=== PATIENT | male | born 1940 | race Caucasian/White ===

== ENCOUNTER → 2022-05-30 | Outpatient (CLI) | payer MEDICARE ==
[~2022-05-30] MED LIST: CATHETER FLUSH 10 ML SYR IV PRN; HOLD METFORMIN - RECEIVED CONTRAST 20 ML VIAL IV SCH; IOHEXOL 350 MG/ML 100 ML (OMNIPAQUE 350) VIAL IV ONE; NS 100 ML (IVPB) BAG IV ONE
[2022-05-30 09:38] LABS: BILIRUBIN,TOTAL 0.6 MG/DL (0.1-1.0); CALCIUM 9.1 MG/DL (8.5-10.1); CREATININE SERUM 1.37 MG/DL (0.60-1.30); POTASSIUM 4.2 MMOL/L (3.6-5.0)
[2022-05-30 09:39] LABS: ALBUMIN 3.9 GM/DL (3.2-4.5); TOTAL PROTEIN 7.1 GM/DL (6.4-8.2)
--- NOTE | 2022-05-30 11:10 | Diagnostic Imaging Report ---
PROCEDURE: CT abdomen and pelvis with contrast. TECHNIQUE: Multiple contiguous axial images were obtained through the abdomen and pelvis after administration of intravenous contrast. Auto Exposure Controls were utilized during the CT exam to meet ALARA standards for radiation dose reduction. All CT scans use one or more of the following dose optimizing techniques: automated exposure control, MA and/or KvP adjustment based on patient size and exam type or iterative reconstruction. INDICATION: Abnormal abdominal ultrasound. The patient's abnormal ultrasound and ultrasound report are not available for comparison. Imaging through the lung bases does show zones of linear atelectasis or scarring, bilateral lower lobes as well as the right middle lobe and lingula. There are small bilateral pleural effusions. No discrete liver mass is detected. There is high density material within the gallbladder which may represent sludge. No definite biliary ductal dilatation is seen. The pancreas and spleen are unremarkable. No adrenal mass is identified. No definite renal calculi or hydronephrosis is seen. Aorta is calcified but nonaneurysmal. There appears to be some perihepatic free fluid. There is a small amount of free fluid in the paracolic gutters bilaterally as well as a small amount of free fluid in the pelvis. The bladder is decompressed. The prostate appears to be surgically absent. There are some inflammatory changes in the central abdomen. Inflammation is adjacent to the third portion of the duodenum. No free air is identified. No well-formed fluid collection is identified. IMPRESSION: 1. Small bilateral pleural effusions with bibasilar atelectasis. 2. Moderate high density material within the gallbladder suggestive of sludge. 3. Free fluid within the abdomen and pelvis. There are some inflammatory changes in the upper central abdomen in the region of the duodenum in both the 2nd and 3rd portions. Duodenitis or peptic ulcer disease could produce a similar appearance. There is no evidence of free air or hollow viscus perforation. No well-formed fluid collection or abscess formation is seen. There is no bowel obstruction. Dictated by: Dictated on workstation # [id number]
== END ==
LOC: RAD FS 09:00
PROVIDERS: ATTEND Family Medicine
DX: Z01.812 Encounter for preprocedural laboratory examination (principal); K81.9 Cholecystitis, unspecified; J90 Pleural effusion, not elsewhere classified; J98.11 Atelectasis
CPT/HCPCS: 36415; 74177; 80053; Q9967

== ENCOUNTER 2022-06-28 11:11 | Emergency (ER) | payer MEDICARE ==
[~2022-06-28] VITALS: Ht 177.8 cm; Wt 103.8 kg
--- NOTE | 2022-06-28 11:22 | ED GI ---
General Chief Complaint: Abdominal/GI Problems Stated Complaint: NAUSEA/NEW MEDS Source of Information: Patient Exam Limitations: No Limitations History of Present Illness Date Seen by Provider: Jun 28, 2022 Time Seen by Provider: 11:11 Initial Comments 82yoM with past medical history of hypertension coming in due to nausea. He had been having upper abdominal pain for some time when his physician eventually ordered an US and then a CT. He had his gallbladder out roughly 3 week ago at [facility] after these studies. 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 He has follow up in [address] chest and MRI abdomen for further diagnostic information before they decide his treatment plan. He also has had difficulty with his blood pressure. They increase his metoprolol from 25 mg to 50 mg. They also added lisinopril and hydrochlorothiazide. He took all 3 blood pressure medicines this morning and felt slightly nauseous. That is why he presented to the ER. Nausea is mild, intermittent, nothing really seems to make it better or worse. Had one episode of NB/NB vomiting and otherwise has just been dry heaving. He has zofran at home but did not take it. He denies any fever, abdominal pain, chest pain, shortness of breath, weakness, numbness, or any other concerns. Allergies and Home Medications Allergies Coded Allergies: No Known Drug Allergies (Unverified , 06/28/22) Patient Home Medication List Home Medication List Reviewed: Yes Review of Systems Review of Systems Constitutional: No fever EENTM: No Symptoms Reported Respiratory: No Symptoms Reported Cardiovascular: No Symptoms Reported Gastrointestinal: Nausea Genitourinary: No Symptoms Reported Musculoskeletal: no symptoms reported Skin: no symptoms reported Psychiatric/Neurological: No Symptoms Reported Endocrine: No Symptoms Reported Hematologic/Lymphatic: No Symptoms Reported All Other Systems Reviewed Negative Unless Noted: Yes Past Meglkti-Stiqur-Hnixat Hx Patient Social History Substance use?: No Past Medical History Surgeries: Yes Gallbladder Physical Exam Vital Signs Vital Signs - First Documented 06/28/22 11:14 Temp 35.3 Pulse 54 Resp 22 B/P (MAP) 198/96 (130) Pulse Ox 99 O2 Delivery Room Air Capillary Refill : Height/Weight/BMI Height: '" Weight: lbs. oz. kg; BMI Method: General Appearance: WD/WN, no apparent distress HEENT: PERRL/EOMI, normal ENT inspection, pharynx normal Neck: non-tender, full range of motion, supple, normal inspection Respiratory: chest non-tender, lungs clear, normal breath sounds, no respiratory distress, no accessory muscle use Cardiovascular: regular rate, rhythm, no edema, no murmur Gastrointestinal: normal bowel sounds, non tender, soft; No distended, No guarding, No rebound Extremities: normal range of motion, non-tender, normal inspection, no pedal edema, no calf tenderness, normal capillary refill Back: normal inspection, no CVA tenderness Neurologic/Psychiatric: no motor/sensory deficits, alert, normal mood/affect Skin: normal color, warm/dry Lymphatic: no adenopathy Progress/Results/Core Measures Results/Orders Lab Results Laboratory Tests Test 06/28/22 11:40 Range/Units White Blood Count 8.3 4.3-11.0 10^3/uL Red Blood Count 4.23 L 4.30-5.52 10^6/uL Hemoglobin 13.1 L 13.3-17.7 g/dL Hematocrit 38 L 40-54 % Mean Corpuscular Volume 89 80-99 fL Mean Corpuscular Hemoglobin 31 25-34 pg Mean Corpuscular Hemoglobin Concent 35 32-36 g/dL Red Cell Distribution Width 13.1 10.0-14.5 % Platelet Count 290 130-400 10^3/uL Mean Platelet Volume 9.6 9.0-12.2 fL Immature Granulocyte % (Auto) 0 % Neutrophils (%) (Auto) 71 42-75 % Lymphocytes (%) (Auto) 18 12-44 % Monocytes (%) (Auto) 9 0-12 % Eosinophils (%) (Auto) 2 0-10 % Basophils (%) (Auto) 0 0-10 % Neutrophils # (Auto) 5.9 1.8-7.8 10^3/uL Lymphocytes # (Auto) 1.5 1.0-4.0 10^3/uL Monocytes # (Auto) 0.7 0.0-1.0 10^3/uL Eosinophils # (Auto) 0.2 0.0-0.3 10^3/uL Basophils # (Auto) 0.0 0.0-0.1 10^3/uL Immature Granulocyte # (Auto) 0.0 0.0-0.1 10^3/uL Sodium Level 131 L 135-145 MMOL/L Potassium Level 4.3 3.6-5.0 MMOL/L Chloride Level 96 L 98-107 MMOL/L Carbon Dioxide Level 22 21-32 MMOL/L Anion Gap 13 5-14 MMOL/L Blood Urea Nitrogen 17 7-18 MG/DL Creatinine 1.36 H 0.60-1.30 MG/DL Estimat Glomerular Filtration Rate 52 BUN/Creatinine Ratio 13 Glucose Level 143 H 70-105 MG/DL Calcium Level 9.0 8.5-10.1 MG/DL Corrected Calcium 9.2 8.5-10.1 MG/DL Magnesium Level 1.9 1.6-2.4 MG/DL Total Bilirubin 0.6 0.1-1.0 MG/DL Aspartate Amino Transf (AST/SGOT) 85 H 5-34 U/L Alanine Aminotransferase (ALT/SGPT) 107 H 0-55 U/L Alkaline Phosphatase 286 H 40-136 U/L Total Protein 6.9 6.4-8.2 GM/DL Albumin 3.8 3.2-4.5 GM/DL Lipase 67 8-78 U/L My Orders Orders - SVITLANA BOLTON MD Ondansetron Injection (Zofran Injectio (06/28/22 11:45) Ed Iv/Invasive Line Start (06/28/22 11:35) Cbc With Automated Diff (06/28/22 11:35) Comprehensive Metabolic Panel (06/28/22 11:35) Lipase (06/28/22 11:35) Magnesium (06/28/22 11:35) Protime With Inr (06/28/22 11:35) Medications Given in ED Current Medications Medications Dose Ordered Sig/Davin Route Start Time Stop Time Status Last Admin Dose Admin Ondansetron HCl 4 mg ONCE ONCE IVP 06/28/22 11:45 06/28/22 11:46 DC 06/28/22 12:03 4 MG Vital Signs/I&O 06/28/22 11:14 Temp 35.3 Pulse 54 Resp 22 B/P (MAP) 198/96 (130) Pulse Ox 99 O2 Delivery Room Air Progress Progress Note : Progress Note 82-year-old male with above history coming in due to nausea and dry heaving. ABCs were intact and vitals were stable on presentation. He is hypertensive here, but he says he is actually lower than he was yesterday with his systolic yesterday around 240. After resting and when he was not dry heaving I personally took his blood pressure and it was in the 150s. He was given IV Zofran for his nausea which helped a lot. Basic labs with normal white blood cell count, slightly low sodium, creatinine around 1.3 with unclear baseline, slightly elevated AST, ALT, alk phos which fits his pathology. He has an MRCP and CT chest in a couple days with follow-up. He has a soft and nontender abdomen. He is passing flatus and had a bowel movement yesterday. Clinically does not seem obstructed. I think it is appropriate for him to follow-up in a couple days with his primary, and this is likely related to his GI cancer versus viral illness versus some other etiology. I believe he is stable for discharge with outpatient follow-up. He was sent home with strict return precautions Departure Impression Primary Impression: Vomiting in adult Disposition: 01 HOME, SELF-CARE Condition: Stable Departure-Patient Inst. Decision time for Depature: 12:31 Referrals: CATE FUNEZ MD (PCP/Family) Primary Care Physician Patient Instructions: Nausea and Vomiting, Adult ED Add. Discharge Instructions: I think this is likely related to your GI cancer versus some food you ate versus an illness that was passed to you versus I think less likely related to your blood pressure medicines. Try to push fluids and do not focus on eating solid foods for the next day until you are feeling better. Try to take your blood pressure medicine like you are supposed to tomorrow, if you start feeling bad shortly after taking that again, then it is possible that your medicine. Follow-up with your regular doctor and be sure to get the scans done on Friday. I recommend taking the Zofran for your nausea at home. SVITLANA BOLTON MD Jun 28, 2022 11:22
[2022-06-28] MEDS ORDERED: ONDANSETRON 4 MG/2 ML (SDV) Z0FRAN IVP ONE (11:45)
[2022-06-28 11:52] LABS: BASOPHILS % (AUTO) 0 % (0-10); EOSINOPHILS # (AUTO) 0.2 10^3/uL (0.0-0.3); EOSINOPHILS % (AUTO) 2 % (0-10); HEMATOCRIT 38 % (40-54); HEMOGLOBIN 13.1 g/dL (13.3-17.7); LYMPHOCYTES # (AUTO) 1.5 10^3/uL (1.0-4.0); LYMPHOCYTES % (AUTO) 18 % (12-44); MEAN CORPUSCULAR HEMOGLOBIN 31 pg (25-34); MEAN CORPUSCULAR HGB CONC 35 g/dL (32-36); MEAN CORPUSCULAR VOLUME 89 fL (80-99); MEAN PLATELET VOLUME 9.6 fL (9.0-12.2); MONOCYTES # (AUTO) 0.7 10^3/uL (0.0-1.0); MONOCYTES % (AUTO) 9 % (0-12); NEUTROPHILS # (AUTO) 5.9 10^3/uL (1.8-7.8); NEUTROPHILS % (AUTO) 71 % (42-75); PLATELET COUNT 290 10^3/uL (130-400); WHITE BLOOD COUNT 8.3 10^3/uL (4.3-11.0)
[2022-06-28 12:18] LABS: BILIRUBIN,TOTAL 0.6 MG/DL (0.1-1.0); CREATININE SERUM 1.36 MG/DL (0.60-1.30); MAGNESIUM 1.9 MG/DL (1.6-2.4); POTASSIUM 4.3 MMOL/L (3.6-5.0)
[2022-06-28 12:19] LABS: ALBUMIN 3.8 GM/DL (3.2-4.5); TOTAL PROTEIN 6.9 GM/DL (6.4-8.2)
[2022-06-28 12:29] LABS: PROTHROMBIN TIME PATIENT 13.5 SEC (12.2-14.7)
[2022-06-28 12:37] VITALS: BP 155/81
== END 2022-06-28 12:40 | disposition home or self-care (01) ==
LOC: EDUNIT# 11:11 → ER FS 11:13
DX: R11.2 Nausea with vomiting, unspecified (principal); I10 Essential (primary) hypertension; E87.1 Hypo-osmolality and hyponatremia; R74.01 Elevation of levels of liver transaminase levels; R74.8 Abnormal levels of other serum enzymes
CPT/HCPCS: 36415; 80053; 83690; 83735; 85025; 85610

== ENCOUNTER 2022-08-07 12:07 | Emergency (ER) | payer MEDICARE ==
[2022-08-07 12:36] LABS: BASOPHILS % (AUTO) 0 % (0-10); EOSINOPHILS # (AUTO) 0.1 10^3/uL (0.0-0.3); EOSINOPHILS % (AUTO) 1 % (0-10); HEMATOCRIT 33 % (40-54); HEMOGLOBIN 11.3 g/dL (13.3-17.7); LYMPHOCYTES # (AUTO) 1.2 10^3/uL (1.0-4.0); LYMPHOCYTES % (AUTO) 9 % (12-44); MEAN CORPUSCULAR HEMOGLOBIN 31 pg (25-34); MEAN CORPUSCULAR HGB CONC 34 g/dL (32-36); MEAN CORPUSCULAR VOLUME 90 fL (80-99); MEAN PLATELET VOLUME 8.5 fL (9.0-12.2); MONOCYTES # (AUTO) 0.3 10^3/uL (0.0-1.0); MONOCYTES % (AUTO) 3 % (0-12); NEUTROPHILS % (AUTO) 87 % (42-75); PLATELET COUNT 295 10^3/uL (130-400); WHITE BLOOD COUNT 12.7 10^3/uL (4.3-11.0)
--- NOTE | 2022-08-07 13:03 | Diagnostic Imaging Report ---
INDICATION: Weakness. Frontal chest obtained at 12:40 p.m. There is poor inspiration. There is mild bibasilar atelectasis. There is no pneumothorax or pleural fluid. Right-sided Port-A-Cath has its tip overlying upper SVC. IMPRESSION: Poor inspiration with mild bibasilar atelectasis. No other significant finding. Dictated by: Dictated on workstation # [id number]
[2022-08-07 13:09] LABS: ALKALINE PHOSPHATASE 478 U/L (40-136); BILIRUBIN,TOTAL 0.7 MG/DL (0.1-1.0); BUN/CREATININE RATIO 26; CALCIUM 9.1 MG/DL (8.5-10.1); CARBON DIOXIDE 20 MMOL/L (21-32); CHLORIDE 91 MMOL/L (98-107); GFR ESTIMATED 25; GLUCOSE 129 MG/DL (70-105); POTASSIUM 5.5 MMOL/L (3.6-5.0); SODIUM 124 MMOL/L (135-145)
[2022-08-07 13:10] LABS: ALANINE AMINOTRANSFERASE 305 U/L (0-55); ALBUMIN 3.4 GM/DL (3.2-4.5); TOTAL PROTEIN 6.5 GM/DL (6.4-8.2)
[2022-08-07] MEDS: NS IV 1000 ML 1,000 ML IV SCH ×2 (13:18→13:54)
[2022-08-07 14:41] LABS: BILIRUBIN,URINE NEGATIVE (NEGATIVE); CLARITY,URINE CLEAR; COLOR,URINE YELLOW; GLUCOSE, URINE (UA) NEGATIVE (NEGATIVE); KETONES,URINE NEGATIVE (NEGATIVE); LEUKOCYTE ESTERASE ,URINE NEGATIVE (NEGATIVE); NITRITE,URINE NEGATIVE (NEGATIVE); PH,URINE 5.5 (5-9); PROTEIN,URINE NEGATIVE (NEGATIVE)
[2022-08-07 14:46] LABS: BACTERIA,URINE NEGATIVE /HPF; WBC,URINE RARE /HPF
[2022-08-07 14:55] VITALS: BP 142/58
--- NOTE | 2022-08-07 15:01 | ED General ---
General Chief Complaint: General Problems/Pain Stated Complaint: DEC URINE OUTPUT Nursing Triage Note: PT REPORTS HE HAD CHEMO ON FRIDAY AND HAS BEEN WEAK EVER SINCE WITH WORSENING LAST PM. HE REPORTS HE HAS BEEN HAVING TROUBLE WITH LOW SODIUM AND HAS BEEN TAKING SALT PILLS. HE ALSO REPORTS A DRY MOUTH. 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 Patient denies dizziness lightheadedness chest pain palpitations, fevers chills, nausea vomiting sweats. He reports decreased urine output and increased thirst. His history of hyponatremia. Timing/Duration: 1-3 Hours Modifying Factors: improves with Other Associated Systoms: Other Allergies and Home Medications Allergies Coded Allergies: No Known Drug Allergies (Unverified , 06/28/22) Patient Home Medication List Home Medication List Reviewed: Yes Review of Systems Review of Systems Constitutional: see HPI EENTM: see HPI Respiratory: see HPI Cardiovascular: see HPI Gastrointestinal: see HPI Genitourinary: see HPI Musculoskeletal: see HPI Skin: see HPI Psychiatric/Neurological: See HPI Hematologic/Lymphatic: See HPI Immunological/Allergic: see HPI All Other Systems Reviewed Negative Unless Noted: No Past Ccnneoh-Dfphse-Twlvyo Hx Patient Social History Tobacco Use?: No Use of E-Cig and/or Vaping dev: No Substance use?: No Alcohol Use?: No Pt feels they are or have been: No Immunizations Up To Date First/Initial COVID19 Vaccinat: 2020 Second COVID19 Vaccination Richie: 2020 Past Medical History Surgery/Hospitalization HX: HTN, adenocarcinoma Surgeries: Yes Gallbladder Physical Exam Vital Signs Vital Signs - First Documented 08/07/22 12:14 Temp 36.3 Pulse 61 Resp 18 B/P (MAP) 134/68 (90) Pulse Ox 99 O2 Delivery Room Air Capillary Refill : Less Than 3 Seconds Height, Weight, BMI Height: '" Weight: lbs. oz. kg; 32.00 BMI Method: General Appearance: WD/WN Eyes: Bilateral Eye Normal Inspection, Bilateral Eye PERRL, Bilateral Eye EOMI HEENT: PERRL/EOMI, Normal ENT Inspection, Pharynx Normal, Moist Mucous Membranes Neck: Normal Inspection, Non Tender, Supple Respiratory: Lungs Clear Cardiovascular: Regular Rate, Rhythm, Other (Peripheral edema) Gastrointestinal: Non Tender, Soft Neurologic/Psychiatric: Alert, Oriented x3, Normal Mood/Affect, swatch checker II-XII Norm as Tested Focused Exam Sepsis Stage: Ruled Out Progress/Results/Core Measures Suspected Sepsis SIRS Temperature: Pulse: 75 Respiratory Rate: 18 Laboratory Tests 08/07/22 12:23: White Blood Count 12.7H Blood Pressure 142 /58 Mean: 86 Laboratory Tests 08/07/22 12:23: Creatinine 2.50H, Platelet Count 295, Total Bilirubin 0.7 Results/Orders Lab Results Laboratory Tests Test 08/07/22 12:23 08/07/22 14:32 Range/Units White Blood Count 12.7 H 4.3-11.0 10^3/uL Red Blood Count 3.68 L 4.30-5.52 10^6/uL Hemoglobin 11.3 L 13.3-17.7 g/dL Hematocrit 33 L 40-54 % Mean Corpuscular Volume 90 80-99 fL Mean Corpuscular Hemoglobin 31 25-34 pg Mean Corpuscular Hemoglobin Concent 34 32-36 g/dL Red Cell Distribution Width 13.1 10.0-14.5 % Platelet Count 295 130-400 10^3/uL Mean Platelet Volume 8.5 L 9.0-12.2 fL Immature Granulocyte % (Auto) 1 % Neutrophils (%) (Auto) 87 H 42-75 % Lymphocytes (%) (Auto) 9 L 12-44 % Monocytes (%) (Auto) 3 0-12 % Eosinophils (%) (Auto) 1 0-10 % Basophils (%) (Auto) 0 0-10 % Neutrophils # (Auto) 11.0 H 1.8-7.8 10^3/uL Lymphocytes # (Auto) 1.2 1.0-4.0 10^3/uL Monocytes # (Auto) 0.3 0.0-1.0 10^3/uL Eosinophils # (Auto) 0.1 0.0-0.3 10^3/uL Basophils # (Auto) 0.0 0.0-0.1 10^3/uL Immature Granulocyte # (Auto) 0.1 0.0-0.1 10^3/uL Sodium Level 124 *L 135-145 MMOL/L Potassium Level 5.5 H 3.6-5.0 MMOL/L Chloride Level 91 L 98-107 MMOL/L Carbon Dioxide Level 20 L 21-32 MMOL/L Anion Gap 13 5-14 MMOL/L Blood Urea Nitrogen 64 H 7-18 MG/DL Creatinine 2.50 H 0.60-1.30 MG/DL Estimat Glomerular Filtration Rate 25 BUN/Creatinine Ratio 26 Glucose Level 129 H 70-105 MG/DL Calcium Level 9.1 8.5-10.1 MG/DL Corrected Calcium 9.6 8.5-10.1 MG/DL Total Bilirubin 0.7 0.1-1.0 MG/DL Aspartate Amino Transf (AST/SGOT) 236 H 5-34 U/L Alanine Aminotransferase (ALT/SGPT) 305 H 0-55 U/L Alkaline Phosphatase 478 H 40-136 U/L Troponin I < 0.30 <0.30 NG/ML Pro-B-Type Natriuretic Peptide 501.3 H <450.0 PG/ML Total Protein 6.5 6.4-8.2 GM/DL Albumin 3.4 3.2-4.5 GM/DL Urine Color YELLOW Urine Clarity CLEAR Urine pH 5.5 5-9 Urine Specific [place] 1.010 L 1.016-1.022 Urine Protein NEGATIVE NEGATIVE Urine Glucose (UA) NEGATIVE NEGATIVE Urine Ketones NEGATIVE NEGATIVE Urine Nitrite NEGATIVE NEGATIVE Urine Bilirubin NEGATIVE NEGATIVE Urine Urobilinogen 0.2 < = 1.0 MG/DL Urine Leukocyte Esterase NEGATIVE NEGATIVE Urine RBC (Auto) NEGATIVE NEGATIVE Urine RBC NONE /HPF Urine WBC RARE /HPF Urine Squamous Epithelial Cells NONE /HPF Urine Crystals NONE /LPF Urine Bacteria NEGATIVE /HPF Urine Casts NONE /LPF Urine Mucus NEGATIVE /LPF Urine Culture Indicated NO My Orders Orders - AMRITA TURCIOS DO Cbc With Automated Diff (08/07/22 12:22) Comprehensive Metabolic Panel (08/07/22 12:22) Urinalysis (08/07/22 12:22) Chest 1 View Ap/Pa Only (08/07/22 12:22) Ekg Tracing (08/07/22 12:22) Troponin I Fs (08/07/22 12:22) Probnp Fs (08/07/22 12:29) Ns Iv 1000 Ml (Sodium Chloride 0.9%) (08/07/22 13:15) Vital Signs/I&O 11/23/22 12:14 Temp 36.3 Pulse 61 Resp 18 B/P (MAP) 134/68 (90) Pulse Ox 99 O2 Delivery Room Air Capillary Refill : Less Than 3 Seconds Blood Pressure Mean: 86 Departure Communication (Admissions) EKG: Low-voltage sinus rhythm, rate 62. Patient with generalized weakness fatigue with stable vital signs. Lab work is consistent with acute renal failure secondary to decreased volume intake and increased Lasix use. IV fluids given with clinical improvement. No shortness of breath, cough or other findings of respiratory failure. Recommendations are continued supportive care watchful waiting and close follow-up with patient's on cologist. Return precautions reviewed. Patient verbalizes understanding and agreement with discharge instructions prior to departure. Impression Primary Impression: Generalized weakness Additional Impression: Dehydration Disposition: 01 HOME, SELF-CARE Condition: Stable Departure-Patient Inst. Decision time for Depature: 15:12 Referrals: CATE FUNEZ MD (PCP) Primary Care Physician Patient Instructions: Dehydration, Adult (DC), Fatigue ED Add. Discharge Instructions: You were evaluated in the emergency department for generalized weakness and fatigue. Lab work was obtained and is consistent with dehydration. Please increase fluids continue home medications and follow-up with your oncologist for further management. Return to the ED if new or concerning symptoms peer All discharge instructions reviewed with patient and/or family. Voiced understanding. AMRITA TURCIOS DO Aug 07, 2022 15:01
== END 2022-08-07 15:19 | disposition home or self-care (01) ==
LOC: EDUNIT# 12:07 → ER FS 12:10
DX: R53.1 Weakness (principal); E86.0 Dehydration; R53.83 Other fatigue; N17.9 Acute kidney failure, unspecified
CPT/HCPCS: 36415; 71045; 80053; 81000; 83880; 84484; 85025